=== PATIENT | male | born 1975 | race Caucasian/White ===

== ENCOUNTER 2019-12-19 04:24 | Emergency (ER) | payer OTHER, SELFPAY ==
[2019-12-19 04:25] VITALS: BP 163/86; PULSE 71; RESP 16; TEMP 36.4; O2SAT 100; BMI 39.3
--- NOTE | 2019-12-19 04:39 | ED.DCSUM_ITS ---
- ER Visit Summary Date of Service: 12/19/19 Chief Complaint: Right shoulder pain History of Present Illness: The patient is a 44 M with right shoulder pain for the past 5 days. Nothing seemed to bring it on. It is worse with laying down, but better when he puts pressure on the area. He was seen in urgent care and prescribed naproxen and Flexeril for a trapezius muscle pull, but the meds are not helping. He has difficulty sleeping. He denies any neurologic symptoms like weakness, numbness, or paresthesias. Denies any spine pain or spine injuries. Denies chest pain or shortness of breath. Denies skin changes. Physical Examination: Afebrile and vital signs unremarkable. Inspection is normal. Good range of motion through his joints. Shoulder and neck are nontender. Arm is nontender. Neurovascular intact. Normal strength and sensation. Patient has tenderness to palpation along the distribution of the right trapezius. Test Results: None indicated Emergency Department Course and Treatment: This sounds like myofascial pain. There is nothing to suggest a radiculopathy. Nothing to suggest fracture or orthopedic process. Patient will continue naproxen. Will discontinue Flexeril. Will prescribe Valium instead. He will also be prescribed topical lidocaine. Follow-up with primary care. Return for any new or worsening issues. Treatment Plan: As above Disposition: Discharge Impression: Right trapezius pain This note was generated with [employer] dictation software. It may contain incorrect words, spelling, and punctuation that were not noted in review of the chart prior to signing ED Disposition - Plan for ED Patient: Referrals: Leoncio Wu MD [Primary Care Provider] -
--- NOTE | 2019-12-19 04:42 | ED.DEP ---
ED Disposition - Plan for ED Patient: Instructions: MUSCLE STRAIN, Extremity Prescriptions: Lidocaine [Lidoderm Patch] 1 patch TOPICAL DAILY #10 patch Prescription Printed Diazepam [Valium] 5 mg PO TID PRN PRN #9 tab PRN Reason: Muscle Spasm Prescription Printed Referrals: Leoncio Wu MD [Primary Care Provider] -
== END 2019-12-19 04:55 | disposition home or self-care (01) ==
PROVIDERS: Emergency Provider Emergency Medicine; PCP Internal Medicine
DX: M25.511 Pain in right shoulder (principal); M79.18 Myalgia, other site; Z79.899 Other long term (current) drug therapy; Z87.891 Personal history of nicotine dependence
CPT/HCPCS: 99282